=== PATIENT | male | born 1950 | race Caucasian/White ===

== ENCOUNTER → 2018-01-11 | Outpatient (CLI) | payer OTHER ==
[~2018-01-11] MED LIST: AEC81 PO; ATOR40TA69 PO; CLOP75TA32 PO; HYDR-4068 PO; LACT1CAP58 PO; MIRT30TA7 PO; [UNRECOGNIZED DRUG - CODE] PO
== END | disposition home or self-care (01) ==
LOC: RAH 11:21
PROVIDERS: ATTEND Internal Medicine
DX: I65.23 Occlusion and stenosis of bilateral carotid arteries (principal); R09.89 Other specified symptoms and signs involving the circulatory and respiratory systems
CPT/HCPCS: 93880

== ENCOUNTER 2018-06-27 09:22 | Inpatient (IN) | payer OTHER ==
[~2018-06-27] VITALS: Ht 177.8 cm; Wt 83.0 kg
[2018-06-27 09:53] LABS: BASOPHILS % (AUTO) 0.1 % (0.0-5.0); LYMPHOCYTES % (AUTO) 2.6 % (21.0-51.0); MEAN CORPUSCULAR HEMOGLOBIN 29.2 pg (27.0-33.0); MEAN CORPUSCULAR HGB CONC 32.7 g/dL (32.0-36.0); MEAN CORPUSCULAR VOLUME 89.3 fL (79-99); NEUTROPHILS % (AUTO) 89.3 % (40.0-77.0); PLATELET COUNT (AUTO) 205 K/uL (130-400); RED BLOOD CELL COUNT(AUTO) 4.03 MIL/uL (4.50-6.20); RED CELL DISTRIBUTION WIDTH 13.9 % (11.0-15.5); WHITE BLOOD COUNT (AUTO) 16.4 K/uL (4.8-10.8)
[2018-06-27 09:59] LABS: CREATININE 3.6 mg/dL (0.5-1.5); POTASSIUM 3.5 mmol/L (3.5-5.1)
[2018-06-27 10:09] LABS: ALBUMIN 2.8 g/dL (3.5-5.0); BILIRUBIN,TOTAL 0.5 mg/dL (0.2-1.0); TOTAL PROTEIN, SERUM 7.7 g/dL (6.0-8.3); TROPONIN I 0.11 ng/mL (0.00-0.06)
[2018-06-27] MEDS ORDERED: CEFTRIAXONE SODIUM 2 GM VIAL ONE (10:23)
[2018-06-27] MEDS ORDERED: ONDANSETRON HCL 4 MG/2 ML VIAL ONE ×2 (10:23→15:46)
[2018-06-27 10:44] LABS: INR 0.95 (0.85-1.15); PARTIAL THROMBOPLASTIN TIME 36.4 SEC (26.3-35.5)
[2018-06-27] MEDS ORDERED: METRONIDAZOLE 500MG/100ML BAG 100 ML ONE (12:41)
[2018-06-27] MEDS ORDERED: SODIUM CHLORIDE 0.9% 1000ML 3,000 ML IV ONE (12:41)
[2018-06-27] MEDS ORDERED: ONDANSETRON HCL 4 MG/2 ML VIAL IV PRN (15:30)
[2018-06-27] MEDS ORDERED: MORPHINE SULFATE 2 MG/ML 1ML SYG IV PRN (15:30)
[2018-06-27] MEDS ORDERED: MORPHINE SULFATE 2 MG/ML 1ML SYG ONE (15:47)
[2018-06-27 17:45] VITALS: BP 126/70
[2018-06-27] MEDS ORDERED: LISI10TA7 PO (18:25)
[2018-06-27] MEDS: IPRATROPIUM/ALBUTEROL SULFATE 3 ML SOLUTION IH SCH ×2 (19:07→23:27)
[2018-06-27 19:15] LABS: BILIRUBIN,URINE Negative (NEGATIVE); COLOR,URINE Yellow (YELLOW); GLUCOSE, URINE (UA) Negative (NEGATIVE); KETONES,URINE Trace mg/dL (NEGATIVE); LEUKOCYTE ESTERASE ,URINE Moderate (NEGATIVE); NITRATE,URINE Positive (NEGATIVE); OCCULT BLOOD,URINE Moderate (NEGATIVE); PROTEIN,URINE POS 2+ (NEGATIVE)
[2018-06-27 19:18] LABS: APPEARANCE,URINE SLIGHTLY CLOUDY (CLEAR)
[2018-06-27] MEDS: SODIUM CHLORIDE 0.9% 1000ML 1,000 ML IV SCH (19:27)
[2018-06-27 19:55] LABS: BACTERIA,URINE Many /HPF (None Seen); RBC,URINE 0-1 /HPF (0-1); WBC,URINE 26-50 /HPF (0-1)
[2018-06-27 19:56] LABS: SQUAMOUS EPITHELIAL CELL,UR None Seen /HPF (0-2)
[2018-06-27 19:57] VITALS: BP 121/54
[2018-06-27] MEDS: ATORVASTATIN CALCIUM 40 MG TABLET PO SCH (20:36)
[2018-06-27] MEDS ORDERED: ZOSYN 3.375GM+NS 50ML 50 ML IV SCH (21:00)
[2018-06-27] MEDS ORDERED: METRONIDAZOLE 500MG/100ML BAG 100 ML IV SCH (22:00)
[2018-06-27 22:21] LABS: AMPHET/METH SCREEN,URINE NEGATIVE (NEGATIVE); BARBITURATE SCREEN, URINE NEGATIVE (NEGATIVE); BENZODIAZEPINES SCREEN,URINE NEGATIVE (NEGATIVE); CANNABINOID SCREEN,URINE NEGATIVE (NEGATIVE); COCAINE SCREEN,URINE NEGATIVE (NEGATIVE); OPIATE SCREEN,URINE POSITIVE (NEGATIVE); PHENCYCLIDINE SCREEN,URINE NEGATIVE (NEGATIVE)
[2018-06-27 23:26] VITALS: BP 118/53
[2018-06-28 03:17] VITALS: BP 123/56
[2018-06-28 03:42] LABS: HEMATOCRIT 28.1 % (42-54); MEAN CORPUSCULAR HGB CONC 33.8 g/dL (32.0-36.0); MEAN CORPUSCULAR VOLUME 88.8 fL (79-99); PLATELET COUNT (AUTO) 188 K/uL (130-400); RED BLOOD CELL COUNT(AUTO) 3.16 MIL/uL (4.50-6.20); RED CELL DISTRIBUTION WIDTH 14.2 % (11.0-15.5); WHITE BLOOD COUNT (AUTO) 12.9 K/uL (4.8-10.8)
[2018-06-28 03:59] LABS: CREATININE 2.8 mg/dL (0.5-1.5); POTASSIUM 3.3 mmol/L (3.5-5.1)
[2018-06-28] MEDS ORDERED: LORAZEPAM 2 MG/ML 1 ML VIAL IM PRN (06:00)
[2018-06-28] MEDS: SODIUM CHLORIDE 0.9% 1000ML 1,000 ML IV SCH ×3 (06:20→21:45)
[2018-06-28] MEDS: CEFTRIAXONE SODIUM 2 GM VIAL IVP SCH (06:26)
[2018-06-28] MEDS: AZITHROMYCIN 250 MG TABLET PO SCH (06:27)
[2018-06-28] MEDS: IPRATROPIUM/ALBUTEROL SULFATE 3 ML SOLUTION IH SCH ×4 (06:34→23:21)
[2018-06-28 08:14] VITALS: BP 118/57
[2018-06-28] MEDS: FAMOTIDINE/PF 20 MG/2 ML VIAL IV SCH (08:34)
[2018-06-28] MEDS: ASPIRIN 81 MG EC TAB PO SCH (08:34)
[2018-06-28] MEDS: CHLORDIAZEPOXIDE HCL 25 MG CAP PO SCH ×3 (08:34→21:45)
[2018-06-28] MEDS: THIAMINE HCL 100 MG TABLET PO SCH (08:35)
[2018-06-28] MEDS: FOLIC ACID/VITAMIN B COMP W-C 1 MG CAPSULE PO SCH (08:35)
[2018-06-28] MEDS: CLOPIDOGREL BISULFATE 75 MG TAB PO SCH (08:35)
[2018-06-28] MEDS: ENOXAPARIN SODIUM 30 MG/0.3 ML SQ SCH (08:36)
[2018-06-28] MEDS: NICOTINE 21 MG/ 24 HR PATCH TD SCH (08:43)
[2018-06-28 12:07] VITALS: BP 126/66
[2018-06-28] MEDS: POTASSIUM CHLORIDE 20 MEQ ERTAB PO SCH ×2 (12:15→21:45)
[2018-06-28 16:00] VITALS: BP 139/67
[2018-06-28 20:10] VITALS: BP 137/64
[2018-06-28] MEDS ORDERED: POTASSIUM CHLORIDE 20 MEQ ERTAB PO ONE (21:02)
[2018-06-28] MEDS: ATORVASTATIN CALCIUM 40 MG TABLET PO SCH (21:45)
[2018-06-29] VITALS (7 sets, daily range): BP systolic 120–148; BP diastolic 52–83
[2018-06-29] MEDS ORDERED: BENZONATATE 100 MG CAPSULE PO ONE (03:35)
[2018-06-29] MEDS: CEFTRIAXONE SODIUM 2 GM VIAL IVP SCH (03:39)
[2018-06-29] MEDS: AZITHROMYCIN 250 MG TABLET PO SCH (03:39)
[2018-06-29] MEDS: BENZONATATE 100 MG CAPSULE PO PRN ×3 (03:40→15:48)
[2018-06-29] MEDS: SODIUM CHLORIDE 0.9% 1000ML 1,000 ML IV SCH ×4 (03:45→18:35)
[2018-06-29] MEDS: IPRATROPIUM/ALBUTEROL SULFATE 3 ML SOLUTION IH SCH (06:07)
[2018-06-29] MEDS: CHLORDIAZEPOXIDE HCL 25 MG CAP PO SCH ×3 (09:00→21:00)
[2018-06-29] MEDS: NICOTINE 21 MG/ 24 HR PATCH TD SCH (09:00)
[2018-06-29] MEDS: FOLIC ACID/VITAMIN B COMP W-C 1 MG CAPSULE PO SCH (09:28)
[2018-06-29] MEDS: ASPIRIN 81 MG EC TAB PO SCH (09:28)
[2018-06-29] MEDS: THIAMINE HCL 100 MG TABLET PO SCH (09:28)
[2018-06-29] MEDS: CLOPIDOGREL BISULFATE 75 MG TAB PO SCH (09:29)
[2018-06-29] MEDS: FAMOTIDINE/PF 20 MG/2 ML VIAL IV SCH (09:29)
[2018-06-29] MEDS: ENOXAPARIN SODIUM 30 MG/0.3 ML SQ SCH (09:32)
[2018-06-29] MEDS: METOPROLOL TARTRATE 25 MG TAB PO SCH ×2 (11:50→22:47)
[2018-06-29] MEDS: ATORVASTATIN CALCIUM 40 MG TABLET PO SCH (22:47)
[2018-06-30] MEDS: SODIUM CHLORIDE 0.9% 1000ML 1,000 ML IV SCH ×3 (03:49→21:36)
[2018-06-30 03:52] LABS: HEMATOCRIT 31.6 % (42-54); MEAN CORPUSCULAR HEMOGLOBIN 29.6 pg (27.0-33.0); MEAN CORPUSCULAR HGB CONC 33.3 g/dL (32.0-36.0); MEAN CORPUSCULAR VOLUME 88.9 fL (79-99); PLATELET COUNT (AUTO) 285 K/uL (130-400); RED BLOOD CELL COUNT(AUTO) 3.55 MIL/uL (4.50-6.20); RED CELL DISTRIBUTION WIDTH 14.7 % (11.0-15.5); WHITE BLOOD COUNT (AUTO) 12.6 K/uL (4.8-10.8)
[2018-06-30 03:58] VITALS: BP 108/48
[2018-06-30 04:23] LABS: CARBON DIOXIDE 18 mmol/L (21-32); CHLORIDE 110 mmol/L (101-111); CREATINE KINASE, TOTAL 79 U/L (21-232); CREATININE 1.8 mg/dL (0.5-1.5); GLOMERULAR FILTR. RATE CALC 40 mL/min (>60); GLUCOSE,RANDOM 79 mg/dL (70-105); MYOGLOBIN 135 ng/mL (10-92); POTASSIUM 3.7 mmol/L (3.5-5.1); SODIUM SERUM 143 mmol/L (136-145); TROPONIN I < 0.04 ng/mL (0.00-0.06); UREA NITROGEN, BLOOD 22 mg/dL (7-18)
[2018-06-30] MEDS: AZITHROMYCIN 250 MG TABLET PO SCH (05:29)
[2018-06-30] MEDS: CEFTRIAXONE SODIUM 2 GM VIAL IVP SCH (05:29)
[2018-06-30 07:00] VITALS: BP 115/63
[2018-06-30] MEDS: NICOTINE 21 MG/ 24 HR PATCH TD SCH (09:00)
[2018-06-30] MEDS: ENOXAPARIN SODIUM 30 MG/0.3 ML SQ SCH (09:00)
[2018-06-30] MEDS: CHLORDIAZEPOXIDE HCL 25 MG CAP PO SCH ×3 (09:00→21:00)
[2018-06-30] MEDS: BENZONATATE 100 MG CAPSULE PO PRN ×2 (09:47→16:54)
[2018-06-30] MEDS: ASPIRIN 81 MG EC TAB PO SCH (09:47)
[2018-06-30] MEDS: CLOPIDOGREL BISULFATE 75 MG TAB PO SCH (09:47)
[2018-06-30] MEDS: THIAMINE HCL 100 MG TABLET PO SCH (09:47)
[2018-06-30] MEDS: FOLIC ACID/VITAMIN B COMP W-C 1 MG CAPSULE PO SCH (09:47)
[2018-06-30] MEDS: METOPROLOL TARTRATE 25 MG TAB PO SCH ×2 (09:47→21:53)
[2018-06-30] MEDS: FAMOTIDINE/PF 20 MG/2 ML VIAL IV SCH (09:50)
[2018-06-30 11:00] VITALS: BP 121/74
[2018-06-30] MEDS: METRONIDAZOLE 500 MG TABLET PO SCH ×2 (11:40→17:23)
[2018-06-30 16:00] VITALS: BP 120/69
[2018-06-30 19:36] VITALS: BP 121/71
[2018-06-30] MEDS: ATORVASTATIN CALCIUM 40 MG TABLET PO SCH (21:53)
[2018-06-30 23:56] VITALS: BP 127/76
[2018-07-01] MEDS: METRONIDAZOLE 500 MG TABLET PO SCH ×3 (02:24→18:12)
[2018-07-01 03:47] VITALS: BP 110/62
[2018-07-01 04:21] LABS: HEMATOCRIT 30.2 % (42-54); MEAN CORPUSCULAR HEMOGLOBIN 29.1 pg (27.0-33.0); MEAN CORPUSCULAR HGB CONC 32.9 g/dL (32.0-36.0); MEAN CORPUSCULAR VOLUME 88.6 fL (79-99); PLATELET COUNT (AUTO) 299 K/uL (130-400); RED BLOOD CELL COUNT(AUTO) 3.41 MIL/uL (4.50-6.20); RED CELL DISTRIBUTION WIDTH 14.7 % (11.0-15.5); WHITE BLOOD COUNT (AUTO) 13.2 K/uL (4.8-10.8)
[2018-07-01 04:35] LABS: CREATININE 1.7 mg/dL (0.5-1.5); CRP QUANTITATIVE 152.1 mg/L (0.00-9.0); POTASSIUM 3.2 mmol/L (3.5-5.1)
[2018-07-01 04:40] LABS: % IRON SATURATION 15.3 % (30-44)
[2018-07-01 04:59] LABS: MAGNESIUM 1.5 mg/dL (1.80-2.40)
[2018-07-01] MEDS: POTASSIUM CHLORIDE 20 MEQ ERTAB PO SCH (05:00)
[2018-07-01] MEDS ORDERED: POTASSIUM CHLORIDE 10 MEQ/TAB.SA PO ONE ×2 (05:21→05:22)
[2018-07-01] MEDS: AZITHROMYCIN 250 MG TABLET PO SCH (05:26)
[2018-07-01] MEDS: CEFTRIAXONE SODIUM 2 GM VIAL IVP SCH (05:26)
[2018-07-01] MEDS ORDERED: MAGNESIUM SULFATE 1 GM in SODIUM CHLORIDE 0.9% 50 ML IV ONE (05:30)
[2018-07-01 07:31] VITALS: BP 109/59
[2018-07-01] MEDS: FAMOTIDINE/PF 20 MG/2 ML VIAL IV SCH (08:09)
[2018-07-01] MEDS: CHLORDIAZEPOXIDE HCL 25 MG CAP PO SCH ×3 (09:00→21:01)
[2018-07-01] MEDS: FOLIC ACID/VITAMIN B COMP W-C 1 MG CAPSULE PO SCH (09:26)
[2018-07-01] MEDS: THIAMINE HCL 100 MG TABLET PO SCH (09:26)
[2018-07-01] MEDS: CLOPIDOGREL BISULFATE 75 MG TAB PO SCH (09:27)
[2018-07-01] MEDS: ASPIRIN 81 MG EC TAB PO SCH (09:27)
[2018-07-01] MEDS: METOPROLOL TARTRATE 25 MG TAB PO SCH ×2 (09:27→21:00)
[2018-07-01] MEDS: ENOXAPARIN SODIUM 30 MG/0.3 ML SQ SCH (09:28)
[2018-07-01] MEDS: NICOTINE 21 MG/ 24 HR PATCH TD SCH (10:19)
[2018-07-01] MEDS: SODIUM CHLORIDE 0.9% 1000ML 1,000 ML IV SCH ×2 (10:36→23:47)
[2018-07-01 11:12] VITALS: BP 116/59
[2018-07-01 16:05] VITALS: BP 134/75
[2018-07-01 20:25] VITALS: BP 129/75
[2018-07-01] MEDS: ATORVASTATIN CALCIUM 40 MG TABLET PO SCH (21:00)
[2018-07-01 23:47] VITALS: BP 133/69
[2018-07-02] MEDS: POTASSIUM CHLORIDE 20 MEQ ERTAB PO SCH (02:10)
[2018-07-02] MEDS: METRONIDAZOLE 500 MG TABLET PO SCH ×3 (02:10→17:22)
[2018-07-02 03:44] LABS: BASOPHILS % (AUTO) 0.3 % (0.0-5.0); EOSINOPHILS % (AUTO) 1.9 % (0.0-8.0); HEMATOCRIT 29.7 % (42-54); LYMPHOCYTES % (AUTO) 6.8 % (21.0-51.0); MEAN CORPUSCULAR HEMOGLOBIN 29.2 pg (27.0-33.0); MEAN CORPUSCULAR HGB CONC 32.9 g/dL (32.0-36.0); MEAN CORPUSCULAR VOLUME 88.7 fL (79-99); MONOCYTES % (AUTO) 7.1 % (3.0-13.0); NEUTROPHILS % (AUTO) 83.9 % (40.0-77.0); PLATELET COUNT (AUTO) 366 K/uL (130-400); RED BLOOD CELL COUNT(AUTO) 3.35 MIL/uL (4.50-6.20); RED CELL DISTRIBUTION WIDTH 15.2 % (11.0-15.5); WHITE BLOOD COUNT (AUTO) 14.2 K/uL (4.8-10.8)
[2018-07-02 04:00] LABS: CREATININE 1.5 mg/dL (0.5-1.5); POTASSIUM 3.1 mmol/L (3.5-5.1)
[2018-07-02 04:39] VITALS: BP 133/79
[2018-07-02] MEDS ORDERED: POTASSIUM CHLORIDE 10MEQ/100ML 100 ML IV PRN (04:45)
[2018-07-02] MEDS ORDERED: LIDOCAINE HCL-MPF 1% 2ML VIAL IVP PRN (04:45)
[2018-07-02] MEDS ORDERED: POTASSIUM CHLORIDE 10% ELIXIR 20 MEQ/15 ML UDCUP PO PRN (04:45)
[2018-07-02] MEDS ORDERED: POTASSIUM CHLORIDE 10 MEQ/TAB.SA PO ONE (05:04)
[2018-07-02] MEDS ORDERED: MAGNESIUM 2GM PREMIX 50ML 50 ML IV ONE (05:04)
[2018-07-02] MEDS: AZITHROMYCIN 250 MG TABLET PO SCH (05:13)
[2018-07-02] MEDS: CEFTRIAXONE SODIUM 2 GM VIAL IVP SCH (05:13)
[2018-07-02 07:44] VITALS: BP 126/69
[2018-07-02] MEDS: FOLIC ACID/VITAMIN B COMP W-C 1 MG CAPSULE PO SCH (08:36)
[2018-07-02] MEDS: FAMOTIDINE/PF 20 MG/2 ML VIAL IV SCH (08:36)
[2018-07-02] MEDS: ASPIRIN 81 MG EC TAB PO SCH (08:36)
[2018-07-02] MEDS: CHLORDIAZEPOXIDE HCL 25 MG CAP PO SCH ×3 (08:36→20:30)
[2018-07-02] MEDS: METOPROLOL TARTRATE 25 MG TAB PO SCH ×2 (08:36→20:30)
[2018-07-02] MEDS: CLOPIDOGREL BISULFATE 75 MG TAB PO SCH (08:37)
[2018-07-02] MEDS: ENOXAPARIN SODIUM 30 MG/0.3 ML SQ SCH (08:37)
[2018-07-02] MEDS: THIAMINE HCL 100 MG TABLET PO SCH (08:37)
[2018-07-02] MEDS: NICOTINE 21 MG/ 24 HR PATCH TD SCH (09:30)
[2018-07-02 11:21] VITALS: BP 129/76
[2018-07-02 16:05] VITALS: BP 124/66
[2018-07-02 20:20] VITALS: BP 119/69
[2018-07-02] MEDS: ATORVASTATIN CALCIUM 40 MG TABLET PO SCH (20:30)
[2018-07-03] VITALS (7 sets, daily range): BP systolic 112–153; BP diastolic 64–83
[2018-07-03] MEDS: POTASSIUM CHLORIDE 20 MEQ ERTAB PO SCH (01:37)
[2018-07-03] MEDS: METRONIDAZOLE 500 MG TABLET PO SCH ×3 (01:53→19:02)
[2018-07-03 03:48] LABS: BASOPHILS % (AUTO) 0.4 % (0.0-5.0); EOSINOPHILS % (AUTO) 1.7 % (0.0-8.0); HEMATOCRIT 29.9 % (42-54); LYMPHOCYTES % (AUTO) 6.5 % (21.0-51.0); MEAN CORPUSCULAR HEMOGLOBIN 29.4 pg (27.0-33.0); MEAN CORPUSCULAR HGB CONC 33.3 g/dL (32.0-36.0); MEAN CORPUSCULAR VOLUME 88.2 fL (79-99); MONOCYTES % (AUTO) 6.6 % (3.0-13.0); NEUTROPHILS % (AUTO) 84.8 % (40.0-77.0); PLATELET COUNT (AUTO) 380 K/uL (130-400); RED BLOOD CELL COUNT(AUTO) 3.39 MIL/uL (4.50-6.20); RED CELL DISTRIBUTION WIDTH 15.2 % (11.0-15.5)
[2018-07-03 04:11] LABS: ALBUMIN 1.7 g/dL (3.5-5.0); BILIRUBIN,TOTAL 0.3 mg/dL (0.2-1.0); CREATININE 1.4 mg/dL (0.5-1.5); POTASSIUM 3.1 mmol/L (3.5-5.1); TOTAL PROTEIN, SERUM 5.5 g/dL (6.0-8.3)
[2018-07-03] MEDS: AZITHROMYCIN 250 MG TABLET PO SCH (05:08)
[2018-07-03] MEDS: CEFTRIAXONE SODIUM 2 GM VIAL IVP SCH (05:08)
[2018-07-03] MEDS: FAMOTIDINE/PF 20 MG/2 ML VIAL IV SCH (09:53)
[2018-07-03] MEDS: CLOPIDOGREL BISULFATE 75 MG TAB PO SCH (09:53)
[2018-07-03] MEDS: ASPIRIN 81 MG EC TAB PO SCH (09:53)
[2018-07-03] MEDS: THIAMINE HCL 100 MG TABLET PO SCH (09:53)
[2018-07-03] MEDS: NICOTINE 21 MG/ 24 HR PATCH TD SCH (09:53)
[2018-07-03] MEDS: FOLIC ACID/VITAMIN B COMP W-C 1 MG CAPSULE PO SCH (09:53)
[2018-07-03] MEDS: METOPROLOL TARTRATE 25 MG TAB PO SCH ×2 (09:53→20:36)
[2018-07-03] MEDS: CHLORDIAZEPOXIDE HCL 25 MG CAP PO SCH ×3 (09:53→20:35)
[2018-07-03] MEDS: ENOXAPARIN SODIUM 30 MG/0.3 ML SQ SCH (09:54)
[2018-07-03] MEDS ORDERED: POTASSIUM CHLORIDE 10 MEQ/TAB.SA PO ONE (10:00)
[2018-07-03] MEDS: MAGNESIUM 2GM PREMIX 50ML 50 ML IV PRN (12:24)
[2018-07-03] MEDS ORDERED: LEVOFLOXACIN 500 MG/D5W 100 ML 100 ML IV SCH (12:45)
[2018-07-03] MEDS: MIRTAZAPINE 15 MG TABLET PO SCH (20:36)
[2018-07-03] MEDS: ATORVASTATIN CALCIUM 40 MG TABLET PO SCH (20:36)
[2018-07-04] MEDS: METRONIDAZOLE 500 MG TABLET PO SCH ×2 (01:50→09:11)
[2018-07-04 03:00] VITALS: BP 138/83
[2018-07-04 03:47] LABS: BASOPHILS % (AUTO) 1.1 % (0.0-5.0); EOSINOPHILS % (AUTO) 1.5 % (0.0-8.0); HEMATOCRIT 31.2 % (42-54); LYMPHOCYTES % (AUTO) 8.2 % (21.0-51.0); MEAN CORPUSCULAR HEMOGLOBIN 30.2 pg (27.0-33.0); MEAN CORPUSCULAR HGB CONC 34.3 g/dL (32.0-36.0); MEAN CORPUSCULAR VOLUME 88.1 fL (79-99); MONOCYTES % (AUTO) 5.9 % (3.0-13.0); NEUTROPHILS % (AUTO) 83.3 % (40.0-77.0); PLATELET COUNT (AUTO) 469 K/uL (130-400); RED BLOOD CELL COUNT(AUTO) 3.53 MIL/uL (4.50-6.20); WHITE BLOOD COUNT (AUTO) 15.7 K/uL (4.8-10.8)
[2018-07-04 03:57] LABS: CREATININE 1.5 mg/dL (0.5-1.5); MAGNESIUM 1.9 mg/dL (1.80-2.40); POTASSIUM 3.2 mmol/L (3.5-5.1)
[2018-07-04] MEDS: POTASSIUM CHLORIDE 20 MEQ ERTAB PO SCH (04:36)
[2018-07-04] MEDS ORDERED: POTASSIUM CHLORIDE 10 MEQ/TAB.SA PO ONE (04:44)
[2018-07-04] MEDS: POTASSIUM CHLORIDE 20 MEQ ERTAB PO PRN ×3 (04:46→09:05)
[2018-07-04 07:57] VITALS: BP 167/81
[2018-07-04] MEDS: FAMOTIDINE/PF 20 MG/2 ML VIAL IV SCH (08:58)
[2018-07-04] MEDS: MAGNESIUM 2GM PREMIX 50ML 50 ML IV PRN (09:01)
[2018-07-04] MEDS: ASPIRIN 81 MG EC TAB PO SCH (09:04)
[2018-07-04] MEDS: CHLORDIAZEPOXIDE HCL 25 MG CAP PO SCH ×3 (09:04→21:50)
[2018-07-04] MEDS: THIAMINE HCL 100 MG TABLET PO SCH (09:05)
[2018-07-04] MEDS: FOLIC ACID/VITAMIN B COMP W-C 1 MG CAPSULE PO SCH (09:05)
[2018-07-04] MEDS: METOPROLOL TARTRATE 25 MG TAB PO SCH ×2 (09:05→21:50)
[2018-07-04] MEDS: CLOPIDOGREL BISULFATE 75 MG TAB PO SCH (09:05)
[2018-07-04] MEDS: NICOTINE 21 MG/ 24 HR PATCH TD SCH (09:06)
[2018-07-04] MEDS: ENOXAPARIN SODIUM 30 MG/0.3 ML SQ SCH (09:08)
[2018-07-04] MEDS ORDERED: FLUCONAZOLE 400 MG/NS 200 ML 200 ML IV SCH (12:00)
[2018-07-04 12:27] VITALS: BP 143/66
[2018-07-04] MEDS ORDERED: [UNRECOGNIZED DRUG - MIXTURE] IV ONE (14:00)
[2018-07-04] MEDS: ZOSYN 3.375GM+NS 50ML 50 ML IV SCH ×2 (14:20→21:50)
[2018-07-04] MEDS: IPRATROPIUM/ALBUTEROL SULFATE 3 ML SOLUTION IH SCH ×2 (14:25→18:44)
[2018-07-04] MEDS: ACETAMINOPHEN 325 MG TAB PO PRN (14:27)
[2018-07-04 16:00] VITALS: BP 147/65
[2018-07-04] MEDS: LEVOFLOXACIN 500 MG/D5W 100 ML 100 ML IV SCH (18:08)
[2018-07-04 19:00] VITALS: BP 150/75
[2018-07-04] MEDS: ATORVASTATIN CALCIUM 40 MG TABLET PO SCH (21:50)
[2018-07-04] MEDS: MIRTAZAPINE 15 MG TABLET PO SCH (21:50)
[2018-07-04 23:00] VITALS: BP 115/76
[2018-07-05] MEDS: IPRATROPIUM/ALBUTEROL SULFATE 3 ML SOLUTION IH SCH ×4 (00:02→23:12)
[2018-07-05 03:00] VITALS: BP 153/78
[2018-07-05 04:00] LABS: BASOPHILS % (AUTO) 0.2 % (0.0-5.0); EOSINOPHILS % (AUTO) 0.9 % (0.0-8.0); HEMATOCRIT 31.8 % (42-54); LYMPHOCYTES % (AUTO) 7.3 % (21.0-51.0); MEAN CORPUSCULAR HEMOGLOBIN 29.1 pg (27.0-33.0); MEAN CORPUSCULAR HGB CONC 33.1 g/dL (32.0-36.0); MEAN CORPUSCULAR VOLUME 87.9 fL (79-99); MONOCYTES % (AUTO) 5.8 % (3.0-13.0); NEUTROPHILS % (AUTO) 85.8 % (40.0-77.0); NUCLEATED RED BLOOD CELLS 0.1 % (0.0-0.19); PLATELET COUNT (AUTO) 434 K/uL (130-400); RED BLOOD CELL COUNT(AUTO) 3.61 MIL/uL (4.50-6.20); RED CELL DISTRIBUTION WIDTH 15.1 % (11.0-15.5); WHITE BLOOD COUNT (AUTO) 12.8 K/uL (4.8-10.8)
[2018-07-05 04:14] LABS: CREATININE 1.6 mg/dL (0.5-1.5); POTASSIUM 3.5 mmol/L (3.5-5.1)
[2018-07-05] MEDS: ZOSYN 3.375GM+NS 50ML 50 ML IV SCH ×3 (05:15→20:19)
[2018-07-05] MEDS: POTASSIUM CHLORIDE 20 MEQ ERTAB PO SCH (05:18)
[2018-07-05 07:48] VITALS: BP 146/72
[2018-07-05] MEDS ORDERED: FLUCONAZOLE 200 MG/NS 100 ML 100 ML IV SCH (09:00)
[2018-07-05] MEDS: FLUCONAZOLE 200 MG/NS 100 ML 100 ML IV SCH (09:07)
[2018-07-05] MEDS: FAMOTIDINE/PF 20 MG/2 ML VIAL IV SCH (09:08)
[2018-07-05] MEDS: FOLIC ACID/VITAMIN B COMP W-C 1 MG CAPSULE PO SCH (09:10)
[2018-07-05] MEDS: CLOPIDOGREL BISULFATE 75 MG TAB PO SCH (09:10)
[2018-07-05] MEDS: ACETAMINOPHEN 325 MG TAB PO PRN (09:10)
[2018-07-05] MEDS: ASPIRIN 81 MG EC TAB PO SCH (09:10)
[2018-07-05] MEDS: THIAMINE HCL 100 MG TABLET PO SCH (09:10)
[2018-07-05] MEDS: METOPROLOL TARTRATE 25 MG TAB PO SCH ×2 (09:10→20:26)
[2018-07-05] MEDS: NICOTINE 21 MG/ 24 HR PATCH TD SCH (09:14)
[2018-07-05] MEDS: ENOXAPARIN SODIUM 30 MG/0.3 ML SQ SCH (09:16)
[2018-07-05] MEDS ORDERED: LORAZEPAM 2 MG/ML 1 ML VIAL IM PRN (10:00)
[2018-07-05] MEDS: CHLORDIAZEPOXIDE HCL 25 MG CAP PO SCH ×2 (10:00→14:00)
[2018-07-05] MEDS ORDERED: LIDOCAINE HCL 1% 20 ML VIAL ONE (10:40)
[2018-07-05] MEDS ORDERED: SODIUM CHLORIDE 0.9% 1000ML 1,000 ML IV ONE (11:22)
[2018-07-05 11:36] VITALS: BP 153/73
[2018-07-05] MEDS ORDERED: CHLORDIAZEPOXIDE HCL 25 MG CAP PO PRN (15:15)
[2018-07-05 16:05] VITALS: BP 134/73
[2018-07-05] MEDS: LEVOFLOXACIN 500 MG/D5W 100 ML 100 ML IV SCH (18:22)
[2018-07-05 20:08] VITALS: BP 155/79
[2018-07-05] MEDS: ATORVASTATIN CALCIUM 40 MG TABLET PO SCH (20:19)
[2018-07-05] MEDS: MIRTAZAPINE 15 MG TABLET PO SCH (20:19)
[2018-07-06] VITALS (8 sets, daily range): BP systolic 110–168; BP diastolic 52–96
[2018-07-06] MEDS: POTASSIUM CHLORIDE 20 MEQ ERTAB PO SCH (05:19)
[2018-07-06] MEDS: ZOSYN 3.375GM+NS 50ML 50 ML IV SCH ×3 (05:19→21:26)
[2018-07-06] MEDS: IPRATROPIUM/ALBUTEROL SULFATE 3 ML SOLUTION IH SCH ×3 (07:05→18:50)
[2018-07-06] MEDS: FLUCONAZOLE 200 MG/NS 100 ML 100 ML IV SCH (10:46)
[2018-07-06] MEDS: FAMOTIDINE/PF 20 MG/2 ML VIAL IV SCH (10:47)
[2018-07-06] MEDS: THIAMINE HCL 100 MG TABLET PO SCH (10:47)
[2018-07-06] MEDS: ASPIRIN 81 MG EC TAB PO SCH (10:47)
[2018-07-06] MEDS: FOLIC ACID/VITAMIN B COMP W-C 1 MG CAPSULE PO SCH (10:47)
[2018-07-06] MEDS: CLOPIDOGREL BISULFATE 75 MG TAB PO SCH (10:47)
[2018-07-06] MEDS: METOPROLOL TARTRATE 25 MG TAB PO SCH ×2 (10:47→20:40)
[2018-07-06] MEDS: NICOTINE 21 MG/ 24 HR PATCH TD SCH (10:48)
[2018-07-06] MEDS: ENOXAPARIN SODIUM 30 MG/0.3 ML SQ SCH (10:51)
[2018-07-06] MEDS: ACETAMINOPHEN 325 MG TAB PO PRN ×2 (14:28→21:27)
[2018-07-06] MEDS: LEVOFLOXACIN 500 MG/D5W 100 ML 100 ML IV SCH (14:31)
[2018-07-06] MEDS: ATORVASTATIN CALCIUM 40 MG TABLET PO SCH (20:40)
[2018-07-06] MEDS: MIRTAZAPINE 15 MG TABLET PO SCH (20:40)
[2018-07-06] MEDS: POTASSIUM CHLORIDE 20 MEQ ERTAB PO PRN (20:41)
[2018-07-07] MEDS: IPRATROPIUM/ALBUTEROL SULFATE 3 ML SOLUTION IH SCH ×4 (00:11→17:57)
[2018-07-07 00:24] VITALS: BP 134/86
[2018-07-07] MEDS ORDERED: DIAZEPAM 5 MG TABLET PO ONE (03:45)
[2018-07-07 04:22] VITALS: BP 140/81
[2018-07-07] MEDS: ZOSYN 3.375GM+NS 50ML 50 ML IV SCH ×3 (04:58→21:01)
[2018-07-07] MEDS: ACETAMINOPHEN 325 MG TAB PO PRN (04:58)
[2018-07-07 05:48] LABS: BASOPHILS % (AUTO) 0.5 % (0.0-5.0); EOSINOPHILS % (AUTO) 2.3 % (0.0-8.0); HEMATOCRIT 30.9 % (42-54); LYMPHOCYTES % (AUTO) 12.1 % (21.0-51.0); MEAN CORPUSCULAR HEMOGLOBIN 28.6 pg (27.0-33.0); MEAN CORPUSCULAR HGB CONC 32.5 g/dL (32.0-36.0); MEAN CORPUSCULAR VOLUME 88.2 fL (79-99); MONOCYTES % (AUTO) 7.1 % (3.0-13.0); NUCLEATED RED BLOOD CELLS 0.1 % (0.0-0.19); PLATELET COUNT (AUTO) 454 K/uL (130-400); RED CELL DISTRIBUTION WIDTH 15.5 % (11.0-15.5)
[2018-07-07 05:57] LABS: CREATININE 1.7 mg/dL (0.5-1.5); POTASSIUM 4.1 mmol/L (3.5-5.1)
[2018-07-07 07:00] VITALS: BP 123/70
[2018-07-07] MEDS: FLUCONAZOLE 200 MG/NS 100 ML 100 ML IV SCH (09:43)
[2018-07-07] MEDS: FAMOTIDINE/PF 20 MG/2 ML VIAL IV SCH (09:43)
[2018-07-07] MEDS: FOLIC ACID/VITAMIN B COMP W-C 1 MG CAPSULE PO SCH (09:43)
[2018-07-07] MEDS: ASPIRIN 81 MG EC TAB PO SCH (09:48)
[2018-07-07] MEDS: THIAMINE HCL 100 MG TABLET PO SCH (09:48)
[2018-07-07] MEDS: METOPROLOL TARTRATE 25 MG TAB PO SCH ×2 (09:48→19:49)
[2018-07-07] MEDS: CLOPIDOGREL BISULFATE 75 MG TAB PO SCH (09:49)
[2018-07-07] MEDS: NICOTINE 21 MG/ 24 HR PATCH TD SCH (09:49)
[2018-07-07] MEDS: ENOXAPARIN SODIUM 30 MG/0.3 ML SQ SCH (09:51)
[2018-07-07 11:00] VITALS: BP 116/71
[2018-07-07 16:00] VITALS: BP_SYST 120; BP_SYST 153; BP_DIAS 58; BP_DIAS 79
[2018-07-07 19:30] VITALS: BP 157/83
[2018-07-07] MEDS: LEVOFLOXACIN 500 MG/D5W 100 ML 100 ML IV SCH (19:40)
[2018-07-07] MEDS: ATORVASTATIN CALCIUM 40 MG TABLET PO SCH (19:49)
[2018-07-07] MEDS: BACLOFEN 10 MG TABLET PO PRN (19:49)
[2018-07-07] MEDS: MIRTAZAPINE 15 MG TABLET PO SCH (19:49)
[2018-07-08] VITALS (7 sets, daily range): BP systolic 150–172; BP diastolic 72–90
[2018-07-08] MEDS: HYDRALAZINE HCL 20 MG/ML VIAL IV PRN (00:03)
[2018-07-08] MEDS: IPRATROPIUM/ALBUTEROL SULFATE 3 ML SOLUTION IH SCH ×5 (00:35→23:36)
[2018-07-08] MEDS: ZOSYN 3.375GM+NS 50ML 50 ML IV SCH ×3 (04:56→22:12)
[2018-07-08 05:19] LABS: BASOPHILS % (AUTO) 0.6 % (0.0-5.0); HEMATOCRIT 27.9 % (42-54); LYMPHOCYTES % (AUTO) 11.4 % (21.0-51.0); MEAN CORPUSCULAR HEMOGLOBIN 29.9 pg (27.0-33.0); MEAN CORPUSCULAR HGB CONC 34.3 g/dL (32.0-36.0); MEAN CORPUSCULAR VOLUME 87.3 fL (79-99); MONOCYTES % (AUTO) 6.8 % (3.0-13.0); NEUTROPHILS % (AUTO) 79.2 % (40.0-77.0); NUCLEATED RED BLOOD CELLS 0.1 % (0.0-0.19); PLATELET COUNT (AUTO) 450 K/uL (130-400); RED CELL DISTRIBUTION WIDTH 15.4 % (11.0-15.5); WHITE BLOOD COUNT (AUTO) 11.3 K/uL (4.8-10.8)
[2018-07-08 05:39] LABS: ALBUMIN 1.7 g/dL (3.5-5.0); BILIRUBIN,TOTAL 0.3 mg/dL (0.2-1.0); CREATININE 1.7 mg/dL (0.5-1.5); POTASSIUM 3.7 mmol/L (3.5-5.1); TOTAL PROTEIN, SERUM 5.9 g/dL (6.0-8.3)
[2018-07-08] MEDS: FLUCONAZOLE 200 MG/NS 100 ML 100 ML IV SCH (09:13)
[2018-07-08] MEDS: NICOTINE 21 MG/ 24 HR PATCH TD SCH (09:14)
[2018-07-08] MEDS: THIAMINE HCL 100 MG TABLET PO SCH (09:15)
[2018-07-08] MEDS: METOPROLOL TARTRATE 25 MG TAB PO SCH ×2 (09:15→20:27)
[2018-07-08] MEDS: ASPIRIN 81 MG EC TAB PO SCH (09:15)
[2018-07-08] MEDS: FAMOTIDINE/PF 20 MG/2 ML VIAL IV SCH (09:15)
[2018-07-08] MEDS: FOLIC ACID/VITAMIN B COMP W-C 1 MG CAPSULE PO SCH (09:15)
[2018-07-08] MEDS: CLOPIDOGREL BISULFATE 75 MG TAB PO SCH (09:15)
[2018-07-08] MEDS: ENOXAPARIN SODIUM 30 MG/0.3 ML SQ SCH (09:16)
[2018-07-08] MEDS: BACLOFEN 10 MG TABLET PO PRN (12:38)
[2018-07-08] MEDS: BENZONATATE 100 MG CAPSULE PO PRN (12:38)
[2018-07-08] MEDS: LEVOFLOXACIN 500 MG/D5W 100 ML 100 ML IV SCH (16:45)
[2018-07-08] MEDS: MIRTAZAPINE 15 MG TABLET PO SCH (20:27)
[2018-07-08] MEDS: ATORVASTATIN CALCIUM 40 MG TABLET PO SCH (20:27)
[2018-07-09] MEDS: HYDRALAZINE HCL 20 MG/ML VIAL IV PRN (00:08)
[2018-07-09 03:00] VITALS: BP 159/80
[2018-07-09] MEDS: ZOSYN 3.375GM+NS 50ML 50 ML IV SCH (04:40)
[2018-07-09 05:16] LABS: HEMATOCRIT 30.9 % (42-54); MEAN CORPUSCULAR HEMOGLOBIN 28.3 pg (27.0-33.0); MEAN CORPUSCULAR HGB CONC 32.6 g/dL (32.0-36.0); MEAN CORPUSCULAR VOLUME 86.9 fL (79-99); PLATELET COUNT (AUTO) 461 K/uL (130-400); RED BLOOD CELL COUNT(AUTO) 3.56 MIL/uL (4.50-6.20); RED CELL DISTRIBUTION WIDTH 15.1 % (11.0-15.5)
[2018-07-09 05:27] LABS: CREATININE 1.7 mg/dL (0.5-1.5); POTASSIUM 3.5 mmol/L (3.5-5.1)
[2018-07-09] MEDS: POTASSIUM CHLORIDE 20 MEQ ERTAB PO PRN ×2 (06:13→12:11)
[2018-07-09] MEDS: IPRATROPIUM/ALBUTEROL SULFATE 3 ML SOLUTION IH SCH ×4 (06:25→23:10)
[2018-07-09 08:48] VITALS: BP 152/82
[2018-07-09] MEDS ORDERED: VANCOMYCIN PROTOCOL PER PHARMACY IV SCH (10:30)
[2018-07-09] MEDS: CLOPIDOGREL BISULFATE 75 MG TAB PO SCH (10:39)
[2018-07-09] MEDS: ASPIRIN 81 MG EC TAB PO SCH (10:40)
[2018-07-09] MEDS: FOLIC ACID/VITAMIN B COMP W-C 1 MG CAPSULE PO SCH (10:40)
[2018-07-09] MEDS: METOPROLOL TARTRATE 25 MG TAB PO SCH ×2 (10:40→23:19)
[2018-07-09] MEDS: FAMOTIDINE/PF 20 MG/2 ML VIAL IV SCH (10:41)
[2018-07-09] MEDS: THIAMINE HCL 100 MG TABLET PO SCH (10:41)
[2018-07-09] MEDS: NICOTINE 21 MG/ 24 HR PATCH TD SCH (10:41)
[2018-07-09] MEDS: FLUCONAZOLE 200 MG/NS 100 ML 100 ML IV SCH (10:42)
[2018-07-09] MEDS: ENOXAPARIN SODIUM 30 MG/0.3 ML SQ SCH (10:43)
[2018-07-09] MEDS: MEROPENEM 1 GM VIAL IVP SCH ×2 (12:10→18:08)
[2018-07-09] MEDS: ACETAMINOPHEN 325 MG TAB PO PRN ×2 (12:18→23:20)
[2018-07-09 13:01] VITALS: BP 156/86
[2018-07-09] MEDS ORDERED: FUROSEMIDE 20 MG TABLET PO SCH (13:30)
[2018-07-09] MEDS ORDERED: VANCOMYCIN 1.75 GM in SODIUM CHLORIDE 0.9% 250 ML IV ONE (14:00)
[2018-07-09] MEDS: LEVOFLOXACIN 500 MG/D5W 100 ML 100 ML IV SCH (16:10)
[2018-07-09] MEDS: FUROSEMIDE 20 MG TABLET PO SCH (16:54)
[2018-07-09 17:22] VITALS: BP 141/68
[2018-07-09 19:44] VITALS: BP 159/77
[2018-07-09] MEDS: MIRTAZAPINE 15 MG TABLET PO SCH (23:19)
[2018-07-09] MEDS: ATORVASTATIN CALCIUM 40 MG TABLET PO SCH (23:19)
[2018-07-09 23:57] VITALS: BP 154/78
[2018-07-10] MEDS: MEROPENEM 1 GM VIAL IVP SCH ×3 (03:47→17:09)
[2018-07-10 04:21] VITALS: BP 154/73
[2018-07-10 05:36] LABS: BASOPHILS % (AUTO) 0.4 % (0.0-5.0); EOSINOPHILS % (AUTO) 1.6 % (0.0-8.0); HEMATOCRIT 31.6 % (42-54); LYMPHOCYTES % (AUTO) 11.8 % (21.0-51.0); MEAN CORPUSCULAR HEMOGLOBIN 29.6 pg (27.0-33.0); MEAN CORPUSCULAR HGB CONC 33.5 g/dL (32.0-36.0); MEAN CORPUSCULAR VOLUME 88.3 fL (79-99); MONOCYTES % (AUTO) 7.4 % (3.0-13.0); NEUTROPHILS % (AUTO) 78.8 % (40.0-77.0); NUCLEATED RED BLOOD CELLS 0.1 % (0.0-0.19); PLATELET COUNT (AUTO) 429 K/uL (130-400); RED BLOOD CELL COUNT(AUTO) 3.58 MIL/uL (4.50-6.20); RED CELL DISTRIBUTION WIDTH 14.8 % (11.0-15.5); WHITE BLOOD COUNT (AUTO) 13.9 K/uL (4.8-10.8)
[2018-07-10 05:46] LABS: CREATININE 1.6 mg/dL (0.5-1.5)
[2018-07-10 05:53] LABS: B-TYPE NATRIURETIC PEPTIDE 500 pg/mL (0-100)
[2018-07-10] MEDS: IPRATROPIUM/ALBUTEROL SULFATE 3 ML SOLUTION IH SCH ×4 (07:04→23:21)
[2018-07-10 08:07] VITALS: BP 161/94
[2018-07-10] MEDS: CLOPIDOGREL BISULFATE 75 MG TAB PO SCH (09:14)
[2018-07-10] MEDS: FOLIC ACID/VITAMIN B COMP W-C 1 MG CAPSULE PO SCH (09:14)
[2018-07-10] MEDS: FUROSEMIDE 20 MG TABLET PO SCH ×2 (09:14→17:09)
[2018-07-10] MEDS: ASPIRIN 81 MG EC TAB PO SCH (09:14)
[2018-07-10] MEDS: THIAMINE HCL 100 MG TABLET PO SCH ×2 (09:14→09:24)
[2018-07-10] MEDS: METOPROLOL TARTRATE 25 MG TAB PO SCH ×2 (09:16→20:32)
[2018-07-10] MEDS: NICOTINE 21 MG/ 24 HR PATCH TD SCH (09:16)
[2018-07-10] MEDS: ENOXAPARIN SODIUM 30 MG/0.3 ML SQ SCH (09:17)
[2018-07-10] MEDS: FAMOTIDINE/PF 20 MG/2 ML VIAL IV SCH (09:24)
[2018-07-10] MEDS: LEVOFLOXACIN 500 MG/D5W 100 ML 100 ML IV SCH (09:38)
[2018-07-10 12:09] VITALS: BP 165/87
[2018-07-10] MEDS: VANCOMYCIN 1.5 GM in SODIUM CHLORIDE 0.9% 250 ML IV SCH (13:44)
[2018-07-10] MEDS: FLUCONAZOLE 200 MG/NS 100 ML 100 ML IV SCH (14:20)
[2018-07-10 16:00] VITALS: BP 158/91
[2018-07-10 20:00] VITALS: BP 162/91
[2018-07-10] MEDS: MIRTAZAPINE 15 MG TABLET PO SCH (20:32)
[2018-07-10] MEDS: ATORVASTATIN CALCIUM 40 MG TABLET PO SCH (20:32)
[2018-07-11] VITALS: BP 163/84
[2018-07-11] MEDS: MEROPENEM 1 GM VIAL IVP SCH ×3 (02:45→16:17)
[2018-07-11 04:00] VITALS: BP 165/79
[2018-07-11] MEDS: HYDRALAZINE HCL 20 MG/ML VIAL IV PRN (04:35)
[2018-07-11 05:52] LABS: BASOPHILS % (AUTO) 0.6 % (0.0-5.0); EOSINOPHILS % (AUTO) 1.5 % (0.0-8.0); HEMATOCRIT 30.2 % (42-54); LYMPHOCYTES % (AUTO) 10.4 % (21.0-51.0); MEAN CORPUSCULAR HEMOGLOBIN 29.6 pg (27.0-33.0); MEAN CORPUSCULAR HGB CONC 33.7 g/dL (32.0-36.0); MONOCYTES % (AUTO) 8.5 % (3.0-13.0); PLATELET COUNT (AUTO) 467 K/uL (130-400); RED BLOOD CELL COUNT(AUTO) 3.43 MIL/uL (4.50-6.20); WHITE BLOOD COUNT (AUTO) 10.9 K/uL (4.8-10.8)
[2018-07-11 06:21] LABS: ALBUMIN 1.9 g/dL (3.5-5.0); BILIRUBIN,TOTAL 0.3 mg/dL (0.2-1.0); CREATININE 1.7 mg/dL (0.5-1.5); POTASSIUM 3.4 mmol/L (3.5-5.1); TOTAL PROTEIN, SERUM 6.4 g/dL (6.0-8.3)
[2018-07-11] MEDS: IPRATROPIUM/ALBUTEROL SULFATE 3 ML SOLUTION IH SCH ×4 (06:43→23:22)
[2018-07-11 06:58] LABS: B-TYPE NATRIURETIC PEPTIDE 399 pg/mL (0-100)
[2018-07-11 08:00] VITALS: BP 151/80
[2018-07-11] MEDS: LEVOFLOXACIN 500 MG/D5W 100 ML 100 ML IV SCH (08:13)
[2018-07-11] MEDS: THIAMINE HCL 100 MG TABLET PO SCH (10:21)
[2018-07-11] MEDS: FLUCONAZOLE 200 MG/NS 100 ML 100 ML IV SCH (10:21)
[2018-07-11] MEDS: METOPROLOL TARTRATE 25 MG TAB PO SCH ×2 (10:21→22:28)
[2018-07-11] MEDS: CLOPIDOGREL BISULFATE 75 MG TAB PO SCH (10:22)
[2018-07-11] MEDS: FOLIC ACID/VITAMIN B COMP W-C 1 MG CAPSULE PO SCH (10:22)
[2018-07-11] MEDS: FUROSEMIDE 20 MG TABLET PO SCH ×2 (10:23→16:17)
[2018-07-11] MEDS: ASPIRIN 81 MG EC TAB PO SCH (10:23)
[2018-07-11] MEDS: NICOTINE 21 MG/ 24 HR PATCH TD SCH (10:36)
[2018-07-11] MEDS: FAMOTIDINE/PF 20 MG/2 ML VIAL IV SCH (10:37)
[2018-07-11] MEDS: ENOXAPARIN SODIUM 30 MG/0.3 ML SQ SCH (10:38)
[2018-07-11 11:00] VITALS: BP 123/75
[2018-07-11] MEDS ORDERED: COMPOUND IV REFRIGERATED 1 EACH IVSOLN MISC PRN (11:45)
[2018-07-11 16:00] VITALS: BP 134/71
[2018-07-11] MEDS: VANCOMYCIN 1.5 GM in SODIUM CHLORIDE 0.9% 250 ML IV SCH (16:18)
[2018-07-11 20:00] VITALS: BP 102/38
[2018-07-11] MEDS: ATORVASTATIN CALCIUM 40 MG TABLET PO SCH (22:27)
[2018-07-11] MEDS: MIRTAZAPINE 15 MG TABLET PO SCH (22:28)
[2018-07-12] VITALS: BP 151/75
[2018-07-12] MEDS: MEROPENEM 1 GM VIAL IVP SCH ×2 (03:41→10:40)
[2018-07-12 04:00] VITALS: BP 137/81
[2018-07-12 04:15] LABS: HEMATOCRIT 28.9 % (42-54); MEAN CORPUSCULAR HEMOGLOBIN 29.5 pg (27.0-33.0); MEAN CORPUSCULAR VOLUME 86.8 fL (79-99); PLATELET COUNT (AUTO) 431 K/uL (130-400); RED BLOOD CELL COUNT(AUTO) 3.33 MIL/uL (4.50-6.20); WHITE BLOOD COUNT (AUTO) 10.2 K/uL (4.8-10.8)
[2018-07-12 04:33] LABS: CREATININE 1.7 mg/dL (0.5-1.5)
[2018-07-12 04:46] LABS: POTASSIUM 2.9 mmol/L (3.5-5.1)
[2018-07-12] MEDS: IPRATROPIUM/ALBUTEROL SULFATE 3 ML SOLUTION IH SCH ×2 (06:11→11:16)
[2018-07-12] MEDS: POTASSIUM CHLORIDE 20 MEQ ERTAB PO PRN ×5 (06:32→17:38)
[2018-07-12 07:30] VITALS: BP 147/75
[2018-07-12] MEDS: ASPIRIN 81 MG EC TAB PO SCH (08:00)
[2018-07-12] MEDS: FOLIC ACID/VITAMIN B COMP W-C 1 MG CAPSULE PO SCH (08:00)
[2018-07-12] MEDS: METOPROLOL TARTRATE 25 MG TAB PO SCH (08:00)
[2018-07-12] MEDS: FUROSEMIDE 20 MG TABLET PO SCH ×2 (08:00→17:38)
[2018-07-12] MEDS: CLOPIDOGREL BISULFATE 75 MG TAB PO SCH (08:00)
[2018-07-12] MEDS: THIAMINE HCL 100 MG TABLET PO SCH (08:01)
[2018-07-12] MEDS: ENOXAPARIN SODIUM 30 MG/0.3 ML SQ SCH (08:01)
[2018-07-12] MEDS: FAMOTIDINE/PF 20 MG/2 ML VIAL IV SCH (08:01)
[2018-07-12] MEDS: NICOTINE 21 MG/ 24 HR PATCH TD SCH (08:05)
[2018-07-12] MEDS: LEVOFLOXACIN 500 MG/D5W 100 ML 100 ML IV SCH (08:05)
[2018-07-12] MEDS: FLUCONAZOLE 200 MG/NS 100 ML 100 ML IV SCH (10:33)
[2018-07-12 11:00] VITALS: BP 140/71
[2018-07-12] MEDS: VANCOMYCIN 1.5 GM in SODIUM CHLORIDE 0.9% 250 ML IV SCH (13:09)
[2018-07-12 16:00] VITALS: BP 137/70
== END 2018-07-12 17:55 | DRG 871 ==
LOC: EDH 09:22 → EDHIP 12:30 → 2AH 17:43 → 2DH 07-03 19:51 → 3DH 07-06 04:23
PROVIDERS: ADMIT Hospitalist; ATTEND Hospitalist
PROC: 0W9B3ZX Drainage of Left Pleural Cavity, Percutaneous Approach, Diagnostic (ICD-10-PCS; principal; 2018-06-27)
PROC: 0W993ZX Drainage of Right Pleural Cavity, Percutaneous Approach, Diagnostic (ICD-10-PCS; 2018-06-27)
DX: A41.50 Gram-negative sepsis, unspecified (principal); J18.9 Pneumonia, unspecified organism; J96.90 Respiratory failure, unspecified, unspecified whether with hypoxia or hypercapnia; E43 Unspecified severe protein-calorie malnutrition; E87.1 Hypo-osmolality and hyponatremia; N17.9 Acute kidney failure, unspecified; F10.239 Alcohol dependence with withdrawal, unspecified; I69.354 Hemiplegia and hemiparesis following cerebral infarction affecting left non-dominant side; N39.0 Urinary tract infection, site not specified; I13.0 Hypertensive heart and chronic kidney disease with heart failure and stage 1 through stage 4 chronic kidney disease, or unspecified chronic kidney disease; I50.32 Chronic diastolic (congestive) heart failure; R17 Unspecified jaundice; R53.81 Other malaise; F10.20 Alcohol dependence, uncomplicated; E86.1 Hypovolemia; F17.210 Nicotine dependence, cigarettes, uncomplicated; R65.20 Severe sepsis without septic shock; E87.6 Hypokalemia; D64.9 Anemia, unspecified; E86.0 Dehydration; G89.29 Other chronic pain; J20.9 Acute bronchitis, unspecified; N18.2 Chronic kidney disease, stage 2 (mild); R13.12 Dysphagia, oropharyngeal phase; Z68.26 Body mass index [BMI] 26.0-26.9, adult; Z74.01 Bed confinement status; Z82.49 Family history of ischemic heart disease and other diseases of the circulatory system; Z82.0 Family history of epilepsy and other diseases of the nervous system
CPT/HCPCS: 36415; 71045; 71250; 72040; 74230; 76705; 80048; 80053; 80202; 80305; 81001; 82140; 82550; 83540; 83550; 83605; 83735; 83874; 83880; 84132; 84484; 85025; 85027; 85610; 85730; 86140; 86738; 87040; 87071; 87088; 87205; 87449; 87633; 92522; 92610; 93005; 93306; 94640; 94664; 97039; 99291; A4218; C1729; G0480; J0360; J0696; J1450; J1650; J1956; J2185; J2405; J2543; J3370; J3411; J3475; J3490; J7030; Q2038

== ENCOUNTER → 2019-02-13 | Outpatient (CLI) | payer OTHER ==
[~2019-02-13] MED LIST changes: -LACT1CAP58 PO; +LISI10TA7 PO; +MIRT-73 PO; -MIRT30TA7 PO; -[UNRECOGNIZED DRUG - CODE] PO
[2019-02-13 11:39] LABS: AMPHET/METH SCREEN,URINE NEGATIVE (NEGATIVE); BARBITURATE SCREEN, URINE NEGATIVE (NEGATIVE); BENZODIAZEPINES SCREEN,URINE NEGATIVE (NEGATIVE); CANNABINOID SCREEN,URINE NEGATIVE (NEGATIVE); COCAINE SCREEN,URINE NEGATIVE (NEGATIVE); OPIATE SCREEN,URINE NEGATIVE (NEGATIVE); PHENCYCLIDINE SCREEN,URINE NEGATIVE (NEGATIVE)
== END | disposition home or self-care (01) ==
LOC: LAB 11:04
PROVIDERS: ATTEND Internal Medicine
DX: F11.20 Opioid dependence, uncomplicated (principal)
CPT/HCPCS: 80305

== ENCOUNTER → 2019-03-20 | Outpatient (CLI) | payer OTHER ==
--- NOTE | 2019-03-20 12:26 | NUR ---
MBSS COMPLETED. NON-TRANSIENT PENETRATION WITH THIN LIQUIDS IN NEUTRAL HEAD POSITION. RECOMMEND REGULAR, THIN LIQUIDS WITH PILLS WHOLE WITH LIQUIDS; LIQUIDS WITH CHIN TUCK OR LEFT HEAD TURN. Addendum: 03/20/19 at 1227 by YANELI HARTLEY, [facility] Amended: Links added.
== END | disposition home or self-care (01) ==
LOC: RAH 11:07
PROVIDERS: ATTEND Internal Medicine Gastroenterology
DX: R13.12 Dysphagia, oropharyngeal phase (principal); R63.3 Feeding difficulties; Z86.73 Personal history of transient ischemic attack (TIA), and cerebral infarction without residual deficits
CPT/HCPCS: 74230; 92611